=== PATIENT | male | born 2000 | race African-American/Black ===

== ENCOUNTER 2021-10-02 13:33 | Emergency (ER) | payer OTHER | END 2021-10-02 14:58 | disposition home or self-care (01) | LOC: BURERS 13:33 | DX: R19.7 Diarrhea, unspecified (principal) | CPT/HCPCS: 99283 ==

== ENCOUNTER 2022-01-21 18:50 | Emergency (ER) | payer OTHER | END 2022-01-21 19:32 | disposition home or self-care (01) | LOC: BURERS 18:50 | DX: Z02.79 Encounter for issue of other medical certificate (principal) | CPT/HCPCS: 99283 ==